=== PATIENT | male | born 1990 | race Caucasian/White ===

== ENCOUNTER 2018-10-09 09:23 | Emergency (ER) | payer OTHER ==
[2018-10-09 09:29] VITALS: BP 138/57; PULSE 71; TEMP 97.5; BMI 36.5
--- NOTE | 2018-10-09 10:49 | PDOC ---
History of Present Illness - General Chief Complaint: Rash Stated Complaint: RASH Time Seen by Provider: 10/09/18 09:36 Past History - Past Medical History Allergies/Adverse Reactions: Allergies Allergy/AdvReac Type Severity Reaction Status Date / Time No Known Allergies Allergy Verified 10/09/18 09:26 Home Medications: Ambulatory Orders Azithromycin [Zithromax -] 250 mg PO UTDICT #6 tab 03/09/16 Ibuprofen 800 mg PO TID #30 tablet 03/09/16 Cephalexin Monohydrate [Keflex -] 500 mg PO BID #14 capsule 10/09/18 Hydrocortisone 1% Ointment [Hytone 1% Ointment -] 1 applic TP BID #1 tube Sulfamethoxazole/Trimethoprim [Bactrim Ds -] 1 tab PO BID #14 tablet 10/09/18 COPD: No - Immunization History Immunization Up to Date: No - Suicide/Smoking/Psychosocial Hx Smoking History: Never smoked Hx Alcohol Use: No Drug/Substance Use Hx: No *Physical Exam - Vital Signs Last Vital Signs Temp Pulse Resp BP Pulse Ox 97.5 F L 71 18 138/57 L 100 10/09/18 09:27 10/09/18 09:27 10/09/18 09:27 10/09/18 09:27 10/09/18 09:27 *DC/Admit/Observation/Transfer Diagnosis at time of Disposition: Folliculitis - Discharge Dispostion Disposition: HOME Condition at time of disposition: Stable Decision to Admit order: No - Referrals Referrals: Andrew Flores MD [Staff Physician] - - Patient Instructions Printed Discharge Instructions: DI for Folliculitis Additional Instructions: You have folliculitis This is an infection of the skin at the hair follicle Take the Bactrim and keflex as prescribed Finish the entire dose even if you feel better Use the Hydrocortisone cream twice a day as needed for itch Follow up with your primary care doctor this week Return to the ER for fever, worsening rash despite treatment or if you have any changes in your symptoms - Post Discharge Activity Forms/Work/School Notes: Back to Work
== END 2018-10-09 10:51 | disposition home or self-care (01) ==
LOC: JERFT 09:23
DX: L73.9 Follicular disorder, unspecified (principal)
CPT/HCPCS: 99281-25